=== PATIENT | female | born 1960 | race Caucasian/White ===

== ENCOUNTER 2018-04-30 12:37 | Outpatient (CLI) | payer OTHER ==
--- NOTE | 2018-05-12 15:39 | MMO ---
BILATERAL SCREENING MAMMOGRAM: COMPARISON: January 06, 2017. Examination is interpreted with the assistance of CAD. FINDINGS: There are scattered fibroglandular elements bilaterally. There is are stable small masses bilaterall y, benign appearing. No new dominant mass, suspicious clustering of microcalcifications, or architec tural distortion. IMPRESSION: BI-RADS 2 - benign findings. Routine annual screening mammography is recommended. BIRADS 2: Benign Finding(s) Routine annual screening mammography (for women over age 40) POS: [facility]
== END 2018-04-30 12:38 | disposition home or self-care (01) ==
LOC: SCSMAMMO 12:37
PROVIDERS: ATTEND Family Medicine
DX: Z12.31 Encounter for screening mammogram for malignant neoplasm of breast (principal)
CPT/HCPCS: 77067

== ENCOUNTER 2018-06-21 15:58 | Emergency (ER) | payer OTHER ==
[2018-06-21] MEDS ORDERED: Morphine 4 MG/ML VIAL ONE ×2 (16:16→17:18)
[2018-06-21] MEDS ORDERED: Mag-Al Plus 1200 MG/1200 MG/120 MG/30 ML UDCUP ONE (16:17)
[2018-06-21] MEDS ORDERED: Pantoprazole 40 MG VIAL ONE (16:17)
[2018-06-21] MEDS ORDERED: Lidocaine Viscous Sol 2% 15 ml UD Cup ONE (16:17)
[2018-06-21 16:57] LABS: #Basophils 0.1 thou/uL (0.0-0.2); #Eosinphils 0.1 thou/uL (0.0-0.7); #Lymphocytes 3.6 thou/uL (1.20-3.40); #Monocytes 0.7 thou/uL (0.11-0.59); #Neutrophils 9.8 thou/uL (1.40-6.50); %Basophils 0.7 % (0.0-1.0); %Eosinophils 0.6 % (0.0-10.0); %Monocytes 5.2 % (0.0-10.0); %Neutrophils 68.6 % (42.0-75.0); Hemoglobin 13.8 g/dL (12.0-16.0); Mean Corpuscular HGB CONC 31.8 g/dL (32.0-36.0); Mean Corpuscular Volume 85.1 fL (78.0-98.0); Mean Platelet Volume 9.6 fL (7.4-10.4); Platelet Count 271 thou/uL (130-400); RBC Distribution Width 12.7 % (11.5-14.5); Red Blood Cell (RBC) Count 5.09 mill/uL (4.20-5.40); White Blood Cell (WBC) Count 14.2 thou/uL (4.8-10.8)
[2018-06-21 17:13] LABS: ALT (SGPT) 19 U/L (8-55); AST (SGOT) 13 U/L (5-34); Albumin 4.1 g/dL (3.5-5.0); Alkaline Phosphatase 120 U/L (40-150); Anion Gap 15 mmol/L (10-20); BUN (Urea Nitrogen) 11 mg/dL (9.8-20.1); Bilirubin, Total 0.9 mg/dL (0.2-1.2); CK (CPK) 35 U/L (29-168); CKMB 0.5 ng/mL (0-6.6); Calc. Creatinine Clearance 0 mL/min (70-130); Calcium 9.1 mg/dL (7.8-10.44); Carbon Dioxide 25 mmol/L (22-29); Chloride 104 mmol/L (98-107); Estimated GFR-MDRD 76; Globulin 3.5 g/dL (2.4-3.5); Glucose 90 mg/dL (70-105); Lipase 6 U/L (8-78); Potassium 3.9 mmol/L (3.5-5.1); Protein, Total 7.6 g/dL (6.0-8.3); Sodium 140 mmol/L (136-145)
[2018-06-21] MEDS ORDERED: Ketorolac Tromethamine 30 MG/ML VIAL ONE (17:18)
[2018-06-21 17:28] LABS: Bilirubin Small (Negative); Blood, Urine Negative (Negative); Clarity Cloudy (Clear); Glucose, Urine (Dipstick) Negative (Negative); Leukocyte Large (Negative); Nitrite Negative (Negative); Protein, Urine (Dipstick) Negative (Neg-Trace); Urobilinogen 0.2 mg/dL (0.2-1.0)
[2018-06-21 17:29] LABS: Specific Gravity, Urine 1.025 (1.002-1.036)
[2018-06-21 17:31] LABS: RBC/HPF 0-3 HPF (0-3)
[2018-06-21 17:32] LABS: Bacteria/HPF 2+ HPF (None Seen); Other Casts/LPF 0-3 COARSE GRAN LPF (0-3 Hyaline); Renal Epithelial 0-3 HPF (0-3)
--- NOTE | 2018-06-21 17:45 | RAD ---
PORTABLE AP CHEST RADIOGRAPH: Date: 06-21-18 History: Abdominal pain for two days with decreased appetite. Pain radiates to back. Comparison: None available. FINDINGS: Cardiac silhouette and pulmonary vasculature are within normal limits. There is eventration of portio ns of the hemidiaphragm. Lungs are clear. Osseous structures appear intact. IMPRESSION: No acute cardiopulmonary process. POS: [facility]
--- NOTE | 2018-06-21 18:23 | CT ---
ABDOMEN CT WITHOUT CONTRAST PELVIC CT WITHOUT CONTRAST: History: Decreased appetite. Two days of abdominal pain. Comparison: None. FINDINGS: ABDOMEN CT: Lung bases are clear. Normal heart size. No significant pericardial fluid. The descending thoracic ao rta and abdominal aorta have a normal caliber. No periaortic fat stranding. Limited evaluation of the solid organs due to lack of IV contrast. Grossly, the liver, spleen, and ad renal glands are unremarkable. There is mild stranding and heterogeneous attenuation of the pancreas, compatible with pancreatitis. No evidence of abscess, cyst or pseudocyst. Grossly unremarkable gallbladder. There are hypodensities in the mid to lower left intrarenal collecting system, compatible with parape lvic cysts. Bilaterally, no hydronephrosis, nephrolithiasis, or perinephric fat stranding. Bilaterall y, ureters have normal caliber. No hydroureter or ureterolithiasis. No mesenteric mass, lymphadenopathy, free air or free fluid. Limited evaluation of the alimentary canal by lack of oral contrast. Small hiatal hernia is noted. No evidence of bowel obstruction. Ileocecal junction is normal. Appendix is not appreciated. No inflamm ation of the cecal apex. Scattered fecal material in a nondistended, nondilated colon. Occasional diverticulum. No diverticuli tis. CT PELVIS: No mass, lymphadenopathy, free air or free fluid. Unremarkable urinary bladder. IMPRESSION: 1. Left parapelvic cyst. Bilaterally, no obstructive uropathy. 2. Inflammatory changes of the pancreas, consistent with pancreatitis. No evidence of cyst or pseudoc yst. No evidence of abscess. Correlate with laboratory values. POS: [facility]
== END 2018-06-21 18:15 | disposition home or self-care (01) ==
LOC: SCSER 15:58
DX: K35.80 Unspecified acute appendicitis (principal); N39.0 Urinary tract infection, site not specified; I10 Essential (primary) hypertension; F32.9 Major depressive disorder, single episode, unspecified; Z87.891 Personal history of nicotine dependence; Z79.82 Long term (current) use of aspirin; Z79.899 Other long term (current) drug therapy
CPT/HCPCS: 71045; 74176; 80053; 81003; 81015; 82150; 82550; 82553; 83690; 84484; 85025; 87086; 93005; 96361; 96374; 96375; 96376; C9113; J1885; J2270

== ENCOUNTER 2018-09-08 08:52 | Day surgery (SDC) | payer OTHER ==
[2018-09-07 16:44] VITALS: BMI 28.3
[2018-09-08] MEDS ORDERED: PROPOFOL 200 MG/20 ML VIAL ONE (09:09)
[2018-09-08] MEDS ORDERED: Ropivacaine 0.2% HCl/PF (40 MG/20 ML VIAL) ONE (09:45)
[2018-09-08] MEDS ORDERED: Ropivacaine 0.5% HCl/PF (150 MG/30 ML VIAL) ONE (09:45)
[2018-09-08 09:57] LABS: #Eosinphils 0.1 thou/uL (0.0-0.7); #Lymphocytes 2.6 thou/uL (1.20-3.40); #Monocytes 0.5 thou/uL (0.11-0.59); #Neutrophils 4.6 thou/uL (1.40-6.50); %Basophils 0.6 % (0.0-1.0); %Eosinophils 1.7 % (0.0-10.0); %Lymphocytes 33.6 % (21.0-51.0); %Monocytes 5.9 % (0.0-10.0); %Neutrophils 58.2 % (42.0-75.0); Hemoglobin 13.5 g/dL (12.0-16.0); Mean Corpuscular Volume 87.3 fL (78.0-98.0); Mean Platelet Volume 8.6 fL (7.4-10.4); Platelet Count 256 thou/uL (130-400); RBC Distribution Width 13.1 % (11.5-14.5); Red Blood Cell (RBC) Count 4.81 mill/uL (4.20-5.40); White Blood Cell (WBC) Count 7.8 thou/uL (4.8-10.8)
[2018-09-08] MEDS ORDERED: Midazolam HCl 2 mg/2 ml Vial ONE ×2 (10:13→12:56)
[2018-09-08 10:14] LABS: Bacteria/HPF 1+ HPF (None Seen); Hyaline Casts/LPF NONE SEEN LPF (0-3 Hyaline); RBC/HPF None Seen HPF (0-3); Squamous Epithelial 0-3 HPF (0-3)
[2018-09-08] MEDS ORDERED: Fentanyl 100 MCG/2 ML VIAL ONE ×2 (10:14→12:56)
[2018-09-08 10:16] LABS: Anion Gap 9 mmol/L (10-20); BUN (Urea Nitrogen) 10 mg/dL (9.8-20.1); Calc. Creatinine Clearance 79 mL/min (70-130); Calcium 8.9 mg/dL (7.8-10.44); Carbon Dioxide 28 mmol/L (22-29); Chloride 105 mmol/L (98-107); Estimated GFR-MDRD 77; Glucose 96 mg/dL (70-105); Sodium 138 mmol/L (136-145)
[2018-09-08 10:46] LABS: Bilirubin Small (Negative); Blood, Urine Negative (Negative); Clarity TURBID (Clear); Glucose, Urine (Dipstick) Negative (Negative); Leukocyte Large (Negative); Nitrite Negative (Negative); Protein, Urine (Dipstick) Trace mg/dL (Neg-Trace); Specific Gravity, Urine 1.027 (1.002-1.036); Urobilinogen 0.2 mg/dL (0.2-1.0); pH, Urine 5.5 (5.0-9.0)
[2018-09-08 10:49] LABS: Urine Culture Reflex No No
[2018-09-08] MEDS ORDERED: Bupivacaine PF 0.5% 30 ML VIAL ONE (12:59)
[2018-09-08] MEDS ORDERED: Bacitracin Zinc Ointment 30 gm TUBE ONE (12:59)
[2018-09-08] MEDS ORDERED: Propofol 1,000 MG/100 ML VIAL IV ONE (13:04)
[2018-09-08] MEDS ORDERED: Lidocaine 2% Jelly 5 ML TUBE ONE (14:08)
[2018-09-08] MEDS ORDERED: PROPOFOL 20 ML ONE (16:02)
[2018-09-08] MEDS ORDERED: Ketorolac Tromethamine 30 MG/ML VIAL ONE ×2 (16:16→16:18)
[2018-09-08] MEDS ORDERED: Promethazine HCl 25 MG/ML VIAL IM PRN (16:25)
[2018-09-08] MEDS ORDERED: HYDROcodone/Acetaminophen 10/325 mg Tablet PO PRN ×2 (16:25)
[2018-09-08] MEDS ORDERED: Ropivacaine 0.2% 550 ML 550 ML NERVE BLCK SCH (16:25)
[2018-09-08] MEDS ORDERED: traMADol HCl 50 MG TAB PO PRN ×2 (16:25)
[2018-09-08] MEDS ORDERED: Zolpidem Tartrate 5 MG TAB PO PRN (16:25)
[2018-09-08] MEDS ORDERED: Ondansetron PF 4 MG/2 ML Vial IVP PRN (16:25)
[2018-09-08] MEDS ORDERED: Fentanyl 100 MCG/2 ML VIAL IV PRN (16:27)
[2018-09-08] MEDS ORDERED: Ketorolac Tromethamine 30 MG/ML VIAL IVP SCH (18:00)
--- NOTE | 2018-09-08 21:32 | RAD ---
RIGHT WRIST THREE VIEW 09/08/18 HISTORY: CMC joint reconstruction. COMPARISON: None. FINDINGS: Multiple fluoroscopic images were obtained from the Operating Room. Percutaneous pin placement is pre sent through the thumb and index finger metacarpal bases. There appears to be a carpectomy of the tra pezium. IMPRESSION: Fluoroscopy of surgical use. POS: [facility]
--- NOTE | 2018-09-09 13:06 | OP ---
DATE OF PROCEDURE: 09/08/2018 PREOPERATIVE DIAGNOSIS: Osteoarthritis, right thumb, severe; carpometacarpal joint. POSTOPERATIVE DIAGNOSIS: Osteoarthritis, right thumb, severe; carpometacarpal joint with over 70% of the thumb metacarpal base and 80% of the articular trapezium, CMC surface worn from arthritis. PROCEDURE PERFORMED: 1. Total trapeziectomy, right thumb carpometacarpal joint. 2. CMC ligament replacement tendon interpositionusing flexor carpi radialis tendon transfer. 3. C-arm supervision. 4. Short-arm splint application. INDICATION: Severe osteoarthritis which failed injection, conservative treatment, bracing, anti-inflammatories and rest along with activity modification. TOURNIQUET TIME: 90 minutes. ESTIMATED BLOOD LOSS: 25 mL. DESCRIPTION OF PROCEDURE: After successful general endotracheal anesthesia, the limb was prepped and draped to the right. The patient had the right wrist area injected with 10 mL of 0.5% Marcaine along the primary incisions at each of the two harvested incisions spaced equally along the flexor carpi radialis tendon, received 5 mL injection. We exsanguinated the limb and inflated the tourniquet to 350 mmHg pressure. A curvilinear hockey-stick incision was carried through skin and subcutaneous tissue, and we dissected along the abductor pollicis longus, retracted radially and then into the joint capsule to expose the carpometacarpal joint. Here, after taking a C-arm photograph with the K-wire into the thumb trapezium that we discoveredon plane dissection and confirmed that this was the thumb carpometacarpal joint. We began at 360 degree sharp dissection with [place] blade, the soft tissue from the thumb trapezium. Once we did this, we ended up over the flexor carpi radialis tendon that was identified and spared. Then, we slowly shelled the trapezium out protecting the flexor carpi radialis completely. There was a posterior medial level of flexor carpi radialis insertion, so we placed a heavy 3-0 Prolene here. We now turned our attention to harvesting the flexor carpi radialis. We made an incision, each one 8 cm, more proximal to the other with the first being 8 cm proximal to the volar wrist flexion crease. We carried through skin and subcutaneous tissue, identified the flexor radialis tendon, from the median nerve and any branches, we then harvested it high in the proximal incision with small amount of muscle, brought it from the medical incision from there to the primary operative incision at the wrist. It was denuded off all soft tissue muscle other than primary tendon, wrapped with a 3-0 Vicryl, undyed in a circumferential manner and then left to the side. We then turned the thumb in the plane of the table, from the radial side dissected the superficial radial nerve terminal branch, protected it, and drilled a hole beginning 15 mm proximal to the thumb metacarpal base into the junction of the articular surface and the metacarpal base. We then easily irrigated this area, I made it large with a 3.5 drill bit and then pulled the tendon through it. Once we headed through, we kept it under appropriate tension and then placed a K-wire 0.62 across the construct. The patient then had the graft weaved after the harvest underneath the flexor radialis tendon, sutures to three sides here to include the fascia, both sides of the abductor pollicis longus, and the deep capsule and then brought around the flexor carpi radialis tendon and woven into the anchovy type M spacer for the remnant of the carpometacarpal joint using the flexor carpi radialis incorporated with a Harley needle. The Harley needle contained the previous capsular suture, pulled through the soft tissue mass and secured it and tied to the bottom in ulnar aspect of the repair. The patient then had the wire confirmed to be from the thumb metacarpal to the index metacarpal, cut it right at the level of skin, obtained hemostasis, and closed the wound with a running 3-0 Monocryl for deep dermal, this was after repairing the capsule over the anchovy weave with a 2-0 Vicryl and repaired the fascia of the thenar muscle back to bone with 2-0 Vicryl interrupted mattress pattern. The subcutaneous closure was accomplished with a running 3-0 Monocryl subcutaneous and epidermis closed with 4-0 nylon. We then closed the two harvest sites, injected all with a total of 20 mL of 0.5% Marcaine and then the patient left the room without evidence of anesthetic or operative complication. Job ID: [id number]
--- NOTE | 2018-09-11 16:31 | EKG ---
Test Reason : PREOP Blood Pressure : / mmHG Vent. Rate : 072 BPM Atrial Rate : 072 BPM P-R Int : 160 ms QRS Dur : 078 ms QT Int : 402 ms P-R-T Axes : 061 057 050 degrees QTc Int : 440 ms Normal sinus rhythm Normal ECG When compared with ECG of 21-JUN-2018 16:16, No significant change was found Confirmed by DR. Marisa GARSIA ([id number]) on 09/11/2018 4:30:36 PM Referred By: MAT Confirmed By:DR. Marisa GARSIA
== END 2018-09-08 17:56 | disposition home or self-care (01) ==
LOC: SDC 08:52
PROVIDERS: ATTEND Orthopaedic Surgery Hand Surgery
PROC: 0LX70ZZ Transfer Right Hand Tendon, Open Approach (ICD-10-PCS; principal; 2018-09-08)
PROC: 0LX50ZZ Transfer Right Lower Arm and Wrist Tendon, Open Approach (ICD-10-PCS; principal; 2018-09-08)
PROC: 0RUS07Z Supplement Right Carpometacarpal Joint with Autologous Tissue Substitute, Open Approach (ICD-10-PCS; principal; 2018-09-08)
DX: M18.0 Bilateral primary osteoarthritis of first carpometacarpal joints (principal); I25.2 Old myocardial infarction; I10 Essential (primary) hypertension; E78.5 Hyperlipidemia, unspecified; K21.9 Gastro-esophageal reflux disease without esophagitis; F32.9 Major depressive disorder, single episode, unspecified; M79.7 Fibromyalgia; J30.2 Other seasonal allergic rhinitis; Z87.891 Personal history of nicotine dependence; Z79.02 Long term (current) use of antithrombotics/antiplatelets; Z79.82 Long term (current) use of aspirin; Z79.891 Long term (current) use of opiate analgesic; Z79.899 Other long term (current) drug therapy; Z88.8 Allergy status to other drugs, medicaments and biological substances; Z95.5 Presence of coronary angioplasty implant and graft
CPT/HCPCS: 76000; 80048; 81003; 81015; 85025; 85652; 93005; 93010; A4306; J1885; J2250; J2704; J2795; J3010; S0020

== ENCOUNTER 2019-03-30 08:37 | Day surgery (SDC) | payer OTHER ==
[2019-03-29 13:16] VITALS: BMI 29.2
--- NOTE | 2019-03-30 01:56 | HP ---
HISTORY OF PRESENT ILLNESS: This is a 58-year-old female, comes for EGD and colonoscopy. The patient has chronic reflux esophagitis over the years. The patient has had no difficulty swallowing. The patient comes for EGD because of chronic acid reflux, she is to have colonoscopy for colon cancer screening. ALLERGIES: AMITRIPTYLINE, VISTARIL. SOCIAL HISTORY: The patient is a former smoker. She does not drink alcohol. MEDICAL ILLNESS: 1. Myocardial infarction in 2018, status post stent placement. 2. Chronic acid reflux. 3. Appendectomy. 4. . 5. Partial hysterectomy. 6. Bilateral oophorectomy. PHYSICAL EXAMINATION: VITAL SIGNS: Pulse is 70, blood pressure 120/76. HEENT: Conjunctivae clear. CARDIOVASCULAR: Within normal limits. LUNGS: Within normal limits. ABDOMEN: Soft. No organomegaly. No tenderness. No masses. EXTREMITIES: Reveal no edema. ADMITTING DIAGNOSES: 1. Chronic acid reflux, longstanding. 2. Colon cancer screening. PLAN: EGD and colonoscopy. Job ID: [id number] [facility]
[2019-03-30] MEDS ORDERED: PROPOFOL 200 MG/20 ML VIAL ONE (11:51)
--- NOTE | 2019-03-30 17:27 | OP ---
DATE OF PROCEDURE: 03/30/2019 PROCEDURE PERFORMED: Esophagogastroduodenoscopy with biopsy. PREOPERATIVE DIAGNOSIS: A 58-year-old female with longstanding acid reflux, undergoing esophagogastroduodenoscopy. POSTOPERATIVE DIAGNOSES: 1. Normal esophageal mucosa. 2. Small hiatal hernia. 3. Mild gastritis in gastric body and antrum. 4. Duodenitis. DESCRIPTION OF PROCEDURE: The patient was placed on her left lateral position and was given sedation by Anesthesia Department. A Pentax video gastroscope under direct vision was passed down the oropharynx, past the GE junction into the stomach and subsequently descending duodenum. Although, the patient has history of acid reflux, longstanding, the mucosa appeared completely normal. At the GE junction, no pathology seen. She has small hiatal hernia. Retroflexion failed to show any pathology in fundus or cardia. The gastric mucosa was diffusely hyperemic. Some linear erythematous streaks over the gastric body and antrum. Biopsy was obtained from the gastric antrum and gastric body. The duodenal bulb shows some patchy areas of mucosal edema and erythema. In the descending duodenum, no lesion seen. The stomach decompressed, and the scope removed. DISCHARGE PLANNING: This is a 58-year-old female, who has longstanding acid reflux, came for an EGD and for a colonoscopy for colon cancer screening. The EGD showed normal esophageal mucosa, did show her gastritis and duodenitis. The colonoscopy showed a polyp over the ascending colon. This was removed. DISCHARGE RECOMMENDATIONS: 1. The patient advised to call me if she develops abdominal pain, hematochezia, or fever. 2. In the absence of any other symptoms, she will come back to me in 2 weeks. Job ID: [id number]
--- NOTE | 2019-03-30 17:48 | OP ---
DATE OF PROCEDURE: 03/30/2019 PROCEDURE PERFORMED: Colonoscopy with polypectomy. PREOPERATIVE DIAGNOSIS: A 58-year-old female undergoing colonoscopy for colon cancer screening. POSTOPERATIVE DIAGNOSES: 1. Sessile polyp descending colon, close to the splenic flexure, status post snare cautery with good hemostasis. 2. Small hemorrhoids. The prep is fair. DESCRIPTION OF PROCEDURE: The patient was placed on her left lateral position and was given sedation by Anesthesia Department. A rectal exam was done. The scope was advanced into the rectum. No lesions felt on rectal exam. A Pentax video colonoscope was introduced into the rectum and advanced all the way to the cecum. The prep was fair. The patient did have some retained liquid stool, which was washed out. The mucosa appeared normal throughout the colon. The appendiceal orifice, ileocecal wall, and cecum no pathology seen. Withdrawal of scope in the cecum, ascending colon, hepatic flexure, no pathology seen. In the transverse colon, splenic flexure, no pathology seen. In the descending colon, close to the splenic flexure showed a sessile polyp. This was removed by snare cautery with good hemostasis. There was no pathology seen in the remainder of descending colon. In the sigmoid colon, no pathology seen. The rectum showed no pathology. Job ID: [id number] [facility]
== END 2019-03-30 12:16 | disposition home or self-care (01) ==
LOC: SDC 08:37
PROVIDERS: ATTEND Internal Medicine Gastroenterology
PROC: 0DBM8ZZ Excision of Descending Colon, Via Natural or Artificial Opening Endoscopic (ICD-10-PCS; principal; 2019-03-30)
PROC: 0DB68ZX Excision of Stomach, Via Natural or Artificial Opening Endoscopic, Diagnostic (ICD-10-PCS; principal; 2019-03-30)
DX: Z12.11 Encounter for screening for malignant neoplasm of colon (principal); D12.4 Benign neoplasm of descending colon; K64.9 Unspecified hemorrhoids; K21.9 Gastro-esophageal reflux disease without esophagitis; K44.9 Diaphragmatic hernia without obstruction or gangrene; K29.90 Gastroduodenitis, unspecified, without bleeding; I25.2 Old myocardial infarction; Z87.891 Personal history of nicotine dependence; Z88.8 Allergy status to other drugs, medicaments and biological substances
CPT/HCPCS: 88305; 88312; J2704

== ENCOUNTER 2021-10-30 13:07 | Outpatient (CLI) | payer OTHER | END 2021-10-30 13:08 | disposition home or self-care (01) | LOC: SCSRAD 13:07 | PROVIDERS: ATTEND Family Medicine | DX: R50.9 Fever, unspecified (principal) | CPT/HCPCS: 71046 ==

== ENCOUNTER 2023-04-02 07:36 | Outpatient (CLI) | payer OTHER | END 2023-04-02 07:37 | disposition home or self-care (01) | LOC: ULT 07:36 | PROVIDERS: ATTEND Family Medicine | DX: R10.11 Right upper quadrant pain (principal); N28.1 Cyst of kidney, acquired | CPT/HCPCS: 76705 ==